=== PATIENT | male | born 1930 | race Caucasian/White ===

== ENCOUNTER 2017-10-17 21:31 | Inpatient (IN) | payer MEDICARE ==
[~2017-10-17] VITALS: Ht 177.8 cm; Wt 77.1 kg
[~2017-10-17 21:31] MED LIST: AMLODIPINE PO; ASPI-496 PO; CARV12.543 PO; CARV6.2512 PO; ENAL20TA68 PO; LEVO50TA5 PO; LISI40TA PO; METF10002 PO
[2017-10-17] MEDS ORDERED: SODIUM CHLORIDE FLUSH 10ML SYR IVF ONE (22:30)
[2017-10-17 22:40] LABS: BASOPHILS # (AUTO) 0.01 x10^3/uL (0-0.1); BASOPHILS % (AUTO) 0 % (0-1); EOSINOPHILS # (AUTO) 0.04 x10^3/uL (0-0.4); EOSINOPHILS % (AUTO) 1 % (1-7); LYMPHOCYTES # (AUTO) 0.67 x10^3/uL (1-3.4); LYMPHOCYTES % (AUTO) 17 % (22-44); MD NO; MEAN CORPUSCULAR HEMOGLOBIN 30.9 pg (27.5-34.5); MEAN CORPUSCULAR HGB CONC 34.2 g/dL (33.2-36.2); MEAN CORPUSCULAR VOLUME 90.6 fL (81-97); MEAN PLATELET VOLUME 10.3 fL (7.4-10.4); MONOCYTES # (AUTO) 0.69 x10^3/uL (0.2-0.8); MONOCYTES % (AUTO) 17 % (2-9); NEUTROPHILS # (AUTO) 2.59 x10^3/uL (1.8-6.8); NEUTROPHILS % (AUTO) 65 % (42-75); PLATELET COUNT 174 x10^3/uL (130-400); RED BLOOD COUNT 4.72 x10^6/uL (4.38-5.82); RED CELL DISTRIBUTION WIDTH 15.9 % (9.4-14.8)
[2017-10-17 22:47] LABS: PROTHROMBIN TIME 10.4 Seconds (9.6-11.5)
[2017-10-17 22:48] LABS: ALANINE AMINOTRANSFERASE 27 U/L (12-78); ALBUMIN 3.5 g/dL (3.4-5.0); ANION GAP 8 mmol/L (5-15); CALCIUM 9.1 mg/dL (8.5-10.1); CHLORIDE 109 mmol/L (98-107)
[2017-10-17 22:52] LABS: ALKALINE PHOSPHATASE 90 U/L (45-117); TOTAL PROTEIN 7.4 g/dL (6.4-8.2); TROPONIN I < 0.015 ng/mL (0.000-0.045)
[2017-10-17] MEDS ORDERED: FUROSEMIDE 40 MG/4 ML IV ONE (23:00)
[2017-10-17] MEDS ORDERED: FUROSEMIDE 40 MG/4 ML ONE (23:14)
[2017-10-17] MEDS ORDERED: OMNIPAQUE 350 MG/ML, 100ML BOTTLE ONE (23:36)
[2017-10-18] MEDS ORDERED: BISACODYL 10 MG SUPP PR PRN (01:00)
[2017-10-18] MEDS ORDERED: POLYETHYLENE GLYCOL 17 GM PACKET PO PRN (01:00)
[2017-10-18] MEDS ORDERED: ACETAMINOPHEN 325 MG TABLET PO PRN (01:00)
[2017-10-18] MEDS ORDERED: ONDANSETRON 2MG/ML, 2ML IVPush PRN (01:00)
[2017-10-18 01:08] LABS: HEMOGLOBIN A1C 6.5 % (4.2-6.3)
[2017-10-18] MEDS: HEPARIN 5,000 UNITS/ML, 1ML SQ SCH ×3 (01:37→17:35)
[2017-10-18 01:41] VITALS: BP 158/68
[2017-10-18 02:04] VITALS: BP 158/68
[2017-10-18] MEDS: CARVEDILOL 12.5 MG TABLET PO SCH ×2 (05:05→17:35)
[2017-10-18 05:45] LABS: CHLORIDE 108 mmol/L (98-107)
[2017-10-18 05:47] LABS: MEAN CORPUSCULAR HEMOGLOBIN 30.5 pg (27.5-34.5); MEAN CORPUSCULAR HGB CONC 33.8 g/dL (33.2-36.2); MEAN CORPUSCULAR VOLUME 90.1 fL (81-97); MEAN PLATELET VOLUME 9.9 fL (7.4-10.4); PLATELET COUNT 186 x10^3/uL (130-400); RED BLOOD COUNT 4.48 x10^6/uL (4.38-5.82); RED CELL DISTRIBUTION WIDTH 16.5 % (9.4-14.8)
[2017-10-18 05:58] LABS: ALANINE AMINOTRANSFERASE 24 U/L (12-78); ALBUMIN 3.3 g/dL (3.4-5.0); ALKALINE PHOSPHATASE 83 U/L (45-117); ANION GAP 8 mmol/L (5-15); BILIRUBIN,TOTAL 1.2 mg/dL (0.2-1.0); CALCIUM 8.9 mg/dL (8.5-10.1); CREATININE 1.01 mg/dL (0.7-1.3); TOTAL PROTEIN 6.9 g/dL (6.4-8.2)
[2017-10-18 06:40] VITALS: BP 133/67
[2017-10-18 07:03] LABS: MD YES
[2017-10-18] MEDS ORDERED: FUROSEMIDE 20 MG/2 ML IV SCH (07:30)
[2017-10-18 07:50] LABS: <PLATELET ESTIMATE> ADEQUATE; <PLT MORPHOLOGY> NORMAL PLT MORPH; ANISOCYTOSIS 1+; LYMPH#(MANUAL) 1.29 x10^3/uL (1-3.4); LYMPHS% (MANUAL) 34 % (22-44); MONOS#(MANUAL) 0.23 x10^3/uL (0.3-2.7); MONOS% (MANUAL) 6 % (2-9); SEG#(MANUAL) 2.28 x10^3/uL (1.8-6.8); SEGS% (MANUAL) 60 % (42-75)
[2017-10-18] MEDS: SODIUM CHLORIDE FLUSH 10ML SYR IVF SCH ×2 (08:45→20:29)
[2017-10-18] MEDS: ASPIRIN 81 MG TABLET EC PO SCH (08:45)
[2017-10-18] MEDS: metFORMIN 500 MG TABLET PO SCH ×2 (08:46→20:35)
[2017-10-18] MEDS: LEVOTHYROXINE 50 MCG TABLET PO SCH (08:47)
[2017-10-18] MEDS: SENNA/DOCUSATE TABLET PO SCH (08:48)
[2017-10-18] MEDS ORDERED: LISINOPRIL 20 MG TABLET PO SCH (09:00)
[2017-10-18 15:00] VITALS: BP 171/77
[2017-10-18 18:59] VITALS: BP 134/61
[2017-10-19 00:42] VITALS: BP 171/71
[2017-10-19] MEDS: HEPARIN 5,000 UNITS/ML, 1ML SQ SCH ×3 (01:12→17:00)
[2017-10-19] MEDS ORDERED: hydrALAzine 20 MG/ML, 1ML IV ONE (01:30)
[2017-10-19] MEDS: CARVEDILOL 12.5 MG TABLET PO SCH ×2 (05:30→17:45)
[2017-10-19 07:30] VITALS: BP 167/77
[2017-10-19] MEDS: SODIUM CHLORIDE FLUSH 10ML SYR IVF SCH ×2 (08:52→20:47)
[2017-10-19] MEDS: ASPIRIN 81 MG TABLET EC PO SCH (08:53)
[2017-10-19] MEDS: metFORMIN 500 MG TABLET PO SCH ×2 (08:53→19:30)
[2017-10-19] MEDS: LEVOTHYROXINE 50 MCG TABLET PO SCH (08:53)
[2017-10-19] MEDS: LISINOPRIL 20 MG TABLET PO SCH ×2 (08:53→19:30)
[2017-10-19] MEDS: SENNA/DOCUSATE TABLET PO SCH (08:54)
[2017-10-19 13:21] VITALS: BP 173/83
[2017-10-19] MEDS ORDERED: FUROSEMIDE 20 MG/2 ML IV ONE (15:30)
[2017-10-19 19:28] VITALS: BP 180/74
[2017-10-19 20:34] VITALS: BP 150/61
[2017-10-20 02:04] VITALS: BP_SYST 161; BP_SYST 166; BP_DIAS 62; BP_DIAS 66
[2017-10-20] MEDS: HEPARIN 5,000 UNITS/ML, 1ML SQ SCH (06:00)
[2017-10-20] MEDS ORDERED: FUROSEMIDE 20 MG/2 ML IV ONE (06:00)
[2017-10-20 06:15] VITALS: BP 161/75
[2017-10-20] MEDS: CARVEDILOL 12.5 MG TABLET PO SCH (06:29)
[2017-10-20] MEDS: ASPIRIN 81 MG TABLET EC PO SCH (07:45)
[2017-10-20] MEDS: LISINOPRIL 20 MG TABLET PO SCH (07:45)
[2017-10-20] MEDS: metFORMIN 500 MG TABLET PO SCH (07:46)
[2017-10-20] MEDS: SODIUM CHLORIDE FLUSH 10ML SYR IVF SCH (07:48)
[2017-10-20] MEDS: LEVOTHYROXINE 50 MCG TABLET PO SCH (07:49)
[2017-10-20] MEDS: SENNA/DOCUSATE TABLET PO SCH (07:49)
[2017-10-20] MEDS ORDERED: AMLODIPINE 5 MG TABLET PO SCH (09:00)
== END 2017-10-20 11:27 | disposition home or self-care (01) | DRG 291 ==
LOC: ED 23:20 → EDIP 10-18 01:20 → 5SO 10-18 01:25 → 3NE 10-20 05:53
PROVIDERS: ADMIT Internal Medicine; ATTEND Internal Medicine
DX: I11.0 Hypertensive heart disease with heart failure (principal); J96.01 Acute respiratory failure with hypoxia; J90 Pleural effusion, not elsewhere classified; J98.11 Atelectasis; I50.9 Heart failure, unspecified; E03.9 Hypothyroidism, unspecified; E11.9 Type 2 diabetes mellitus without complications; I27.20 Pulmonary hypertension, unspecified; Z82.49 Family history of ischemic heart disease and other diseases of the circulatory system; Z85.46 Personal history of malignant neoplasm of prostate; Z90.79 Acquired absence of other genital organ(s)
CPT/HCPCS: 0399T; 36415; 71045; 71250; 71275; 80053; 83036; 83880; 84484; 85025; 85379; 85610; 85730; 93005; 93306; 96374; 99291; J1644; J1940; Q9967; J0360; J7512

== ENCOUNTER → 2018-03-04 | Outpatient (CLI) | payer MEDICARE | END | disposition home or self-care (01) | LOC: CFH 08:21 | PROVIDERS: ATTEND Internal Medicine | DX: R91.8 Other nonspecific abnormal finding of lung field (principal); R06.02 Shortness of breath | CPT/HCPCS: 71250 ==